=== PATIENT | female | born 1975 | race Caucasian/White ===

== ENCOUNTER → 2017-03-19 | Outpatient (CLI) | payer BC ==
[2005-06-13 11:52] VITALS: TEMP 97.7
== END ==
LOC: MC.RAD 09:18
DX: Z12.31 Encounter for screening mammogram for malignant neoplasm of breast (principal)

== ENCOUNTER → 2018-04-07 | Outpatient (CLI) | payer BC ==
[2005-06-13 11:52] VITALS: TEMP 97.7
== END ==
LOC: MC.RAD 08:15
DX: Z12.31 Encounter for screening mammogram for malignant neoplasm of breast (principal)

== ENCOUNTER 2020-07-01 09:38 | Inpatient (IN) | payer BC ==
[2020-07-01] VITALS (14 sets, daily range): BP systolic 108–138; BP diastolic 56–85; PULSE 69–96; TEMP 98–98.5
[~2020-07-01] VITALS: Ht 175.3 cm; Wt 73.6 kg
--- NOTE | 2020-07-01 11:35 | NUR ---
Pt here for induction for Intrauterine demise. Pt 20.3 weeks gestation and was at the [facility] today for 20 week ultrasound appointment. Pt oriented to LDR 1. at bedside. Pt to bed and consents signed. INT started to right hand x 1 attempt. Vital signs stable. Pt refuses to be swabbed at this time for covid-19. Assessment complete. Pt has had 1 vaginal delivery and 3 ceserean sections after that. G5L4. This nurse at bedside and reviewed options and resources with pt and . Packet of information given. Dr Green will be here to review plan of care and orders.
[2020-07-01] MEDS ORDERED: PRENATAL PO (12:08)
--- NOTE | 2020-07-01 14:00 | NUR ---
Dr Green at bedside. Plan of care reviewed. Pt denies wanting an autopsy on fetus at this time. 1435: 100mcg cytotec placed vaginally. Vital signs stable. Pt instructed to be in bed for 1 hour and will recheck vital signs. [place] placed to abdomen.
[2020-07-01 14:49] LABS: ALBUMIN 3.6 gm/dL (3.5-5.0); BILIRUBIN,TOTAL 0.3 mg/dL (0.0-1.0); CALCIUM 8.9 mg/dL (8.4-10.2); CREATININE, serum 0.86 (0.52-1.25); POTASSIUM 3.9 mmol/L (3.4-5.0); TOTAL PROTEIN 6.8 gm/dL (6.4-8.2)
[2020-07-01 15:19] LABS: THYROID STIMULATING HORMONE 0.583 uIU/mL (0.465-4.680)
[2020-07-01 16:10] LABS: BASO % 0.2 % (0.0-2.0); EOS # 0.1 (0.0-0.7); EOS % 0.9 % (0-4.0); GRAN # 9.9 (1.4-6.5); GRAN % 85.8 % (42.2-75.2); HEMOGLOBIN 14.1 g/dl (12.5-16.0); LYMPH # 0.9 (1.2-3.4); LYMPH % 7.3 % (20.0-51.0); MEAN CELL VOLUME 91 fl (80.0-100.0); MEAN CORPUSCULAR HEMOGLOBIN 30 pg (27.0-31.0); MEAN CORPUSCULAR HGB CONC 34 g/dl (33.0-37.0); MEAN PLATELET VOLUME 11.8 fl (7.4-10.4); MONO # 0.6 (0.1-0.6); MONO % 5.4 % (1.7-9.3); PLATELET COUNT 246 K/mm3 (130-400); RED BLOOD COUNT 4.64 M/mm3 (4.10-5.30); REDCELL DISTRIBUTION WIDTH-CV 15.6 % (11.5-14.5)
--- NOTE | 2020-07-01 18:40 | NUR ---
184- BEDSIDE SHIFT REPORT RECEIVED AND CARE ASSUMED. PT RESTING WITH AT BEDSIDE. DENIES NEEDS AT THIS TIME. 194- PT REPORTS FEELING SOME MILD INTERMITTENT CRAMPING. DENIES THAT IT IS PAINFUL. DENIES NEEDS AT THIS TIME.
--- NOTE | 2020-07-01 20:05 | NUR ---
2005- DR PITTMAN UPDATED ON PT. STATES TO INCREASE NEXT DOSE OF VAGINAL CYTOTEC TO 200MCG IF PT CONTINUES TO NOT BE UNCOMFORTABLE.
--- NOTE | 2020-07-01 20:35 | NUR ---
2034- PT REPORTS FEELING SOME CRAMPING, BUT STATES IT IS NOT PAINFUL. DENIES FURTHER NEEDS AT THIS TIME. 2139- PLAN OF CARE DISCUSSED WITH PT CONCERNING NEXT DOSE OF CYTOTEC. QUESTIONS ANSWERED. PT STATES SHE CONTINUES TO HAVE SOME INTERMITTENT CRAMPING BUT IS ABLE TO REST BETWEEN.
--- NOTE | 2020-07-01 22:45 | NUR ---
2245- PT STATES HER CRAMPING HAS NOT GOTTEN WORSE, DISCUSSED WITH PT INCREASING CYTOTEC DOSAGE WITH THIS CHECK. PT DISCUSSES WITH AND IS AGREEABLE TO THIS. PT UP TO BATHROOM PRIOR TO CYTOTEC PLACEMENT. 2250- SVE BY THIS NURSE CLOSED AND THICK. 200MCG CYTOTEC PLACED AT THIS TIME. WARM BLANKET PROVIDED. 0010- PT REPORTS FEELING SOME MORE CRAMPING. SHE IS RESTING A BIT. DENIES FURTHER NEEDS AT THIS TIME.
[2020-07-02] VITALS (27 sets, daily range): BP systolic 104–144; BP diastolic 56–80; PULSE 58–95; TEMP 97.7–98
--- NOTE | 2020-07-02 01:45 | NUR ---
0145- PT UP TO BATHROOM. STATES SHE HAS BEEN FEELING MORE CRAMPING AND IT IS MORE CONSISTENT. DENIES NEEDS. PAIN MANAGEMENT DISCUSSED AND PT STATES SHE IS COMFORTABLE WITHOUT MEDICATION AT THIS TIME. 0300- PT REPORTS CRAMPING HAS CONTINUED. SHE RESTS IN BETWEEN BUT HAS NOT BEEN SLEEPING. SVE BY THIS NURSE 0/3. DISCUSSED CYTOTEC AND PT IS OK WITH PROCEEDING WITH ANOTHER DOSE OF 200MCG. 0303- PT UP TO BATHROOM TO VOID. 0310- CYTOTEC PLACED VAGINALLY ORDERED. PT POSITIONED FOR COMFORT. PT DENIES FURTHER NEEDS AT THIS TIME.
--- NOTE | 2020-07-02 04:30 | NUR ---
0430- PT CALLS OUT WITH INCREASED DISCOMFORT. STATES SHE WOULD LIKE SOME IV PAIN MEDICATION AT THIS TIME. 0437- IV MORPHINE GIVEN ORDERED. PT TOLERATED WELL. ICE CHIPS PROVIDED AND PLAN OF CARE DISCUSSED. PT DENIES FURTHER NEEDS AT THIS TIME.
--- NOTE | 2020-07-02 07:38 | NUR ---
Dr Green at bedside and SVE, cervix closed, bloody show noted. Physician able to feel previous cytotec at this time. Order to start pitocin and will not continue to place cytotec. Plan of care reviewed with pt and by physician and they are ok with proceeding with pitocin. 0800:Pt crying at this time and questions answered about pitocin and getting an epidural. Pt requests for epidural at this time. Ye BELL here and notified. LR bolus started. 0815:Ye BELL at bedside.Time out done. Epidural placed. Single shot done at 0822 and test dose at 0826. Pt tolerated well.
--- NOTE | 2020-07-02 09:30 | NUR ---
Pt comfortable with epidural. Garcia catheter placed. sVE: cervix closed. Dr Green at nurse's station and notified.
--- NOTE | 2020-07-02 10:00 | NUR ---
Dr Green at bedside. Option of mecanical dilation of vela bulb reviewed with pt and they agree to move forward with that. 1030:Vela bolb placed and secured to leg with tension. pericare done and pt resting in bed.
--- NOTE | 2020-07-02 11:15 | NUR ---
Pt feeling some pressure, SVE: 5+ and bugly bag felt in vaginal vault and Dr trevino notified at nurse's station. 1119:fetus in bag of gud[place] delivered. Fetus with tight nuchal x 1 and then wrapped around the arm. 1128:Spontaneous delivery of placenta. LR with pitocin infusing at 333ml/hr. Fundus firm, bleeding minimal. at bedside. Baby wrapped and handed to mom at this time.
[2020-07-02] MEDS ORDERED: IBU600 MG PO (11:51)
--- NOTE | 2020-07-02 12:31 | NUR ---
[facility] referral number [id number].
--- NOTE | 2020-07-02 13:00 | NUR ---
Informed pt and of option of sending placenta for pathology. Pt denies and does not want it sent at this time.
--- NOTE | 2020-07-02 13:30 | NUR ---
Pt up to bathroom with assist. Voids 200cc urine. Bleeding is WNL, pericare given. Pads and undewear on and pt changed to own clothes.
--- NOTE | 2020-07-02 14:00 | NUR ---
Father Demario from [facility] here per pt's request. [place] of baby given.
--- NOTE | 2020-07-02 15:20 | NUR ---
director of diagnostic imaging here and at bedside. Copy of consent given and baby taken by [facility] staff.
--- NOTE | 2020-07-02 16:45 | NUR ---
Pt ready to go home. Dr Green here and notified. Order received to dc home. Bleeding WNL. Discharge instructions given, pt verbalizes understanding. Flu vaccine given, See EMAR. 1705:Pt to personal vehicle.
== END 2020-07-02 17:05 | disposition home or self-care (01) | DRG 807 ==
LOC: LDR 11:27
PROVIDERS: Obstetrics & Gynecology; ADMIT Obstetrics & Gynecology
PROC: 10E0XZZ Delivery of Products of Conception, External Approach (ICD-10-PCS; principal; 2020-07-01)
DX: O36.4XX0 Maternal care for intrauterine death, not applicable or unspecified (principal); Z37.1 Single stillbirth; O34.211 Maternal care for low transverse scar from previous cesarean delivery; O69.1XX0 Labor and delivery complicated by cord around neck, with compression, not applicable or unspecified; Z3A.20 20 weeks gestation of pregnancy
CPT/HCPCS: J2270; J2405; J2590; J2795; J7120

== ENCOUNTER → 2020-09-20 | Outpatient (CLI) | payer BC ==
[2005-06-13 11:52] VITALS: TEMP 97.7
[~2020-09-20] MED LIST: IBU600 MG PO; PRENATAL PO
== END ==
LOC: MC.RAD 15:39
DX: Z12.31 Encounter for screening mammogram for malignant neoplasm of breast (principal)

== ENCOUNTER → 2021-09-28 | Outpatient (CLI) | payer BC ==
[2005-06-13 11:52] VITALS: TEMP 97.7
== END ==
LOC: MC.RAD 07:30
DX: Z12.31 Encounter for screening mammogram for malignant neoplasm of breast (principal)

== ENCOUNTER → 2023-11-27 | Outpatient (CLI) | payer BC ==
[2005-06-13 11:52] VITALS: BP 157/89; PULSE 117; TEMP 97.7
== END ==
LOC: MC.RAD 13:59
DX: Z12.31 Encounter for screening mammogram for malignant neoplasm of breast (principal)